=== PATIENT | female | born 1990 ===

== ENCOUNTER 2023-08-04 09:52 | Outpatient (CLI) | payer MEDICAID, SELFPAY ==
--- NOTE | 2023-08-04 12:39 | OP.DCCON ---
Reason for Visit: [id number] O24.730 Person Interviewed: Patient Medical History, Labs and Background: Aleksandar said she is currently 30 weeks and was recently diagnosed with gestational diabetes. Height: 5 ft Weight: 190 lb UBW: Aleksandar stated her UBW was around 170-175lbs Concerns and Goals: She wanted to know how to eat to manage her blood glucose levels. Sleep Hygiene: Aleksandar claimed she is a night owl who tends to get hungry when she stays up late. Physical Activity: She is active with her children, but otherwise no daily exercise. GI Symptoms: Constipation Other Feeding Issues: Aleksandar describes herself as a picky eater. Food Allergies and Sensitivities: She is allergic to strawberries. 24 Hour Recall: Breakfast Time: 8am camila Eggs or omlette + avocado Snack Time: Lunch Time: noon Meat from night before Snack Time: Dinner Time: 6pm camila eggs and mancuso in a tortilla Snack Time: Eating Out: They don't eat out a lot. Soda vs Milk vs Water: She used to have milk+cereal, not a big fan or water, cut out coffee for the most part, and an occasional diet soda. Additional Comments: Constipation is sometimes an issue, so we broached more fruits/ vegetables/whole grains which is hard as she is not a big fan of most vegetables. We also discussed fluid intake and she isn't a huge fan of water, but is willing to try. Aleksandar thought she couldn't have any carbs and so had eliminated most of them. We discussed managing carbs which she said would be hard as she is a carboholic . Given her diagnosis I suggested this could be a time to learn moderation that could carry over after the of her baby which is a better habit in the long run. Recommendations: Assessment: Aleksandar is motivated and had already seen progress in her blood glucose readings. We talked about focusing on how to manage carb servings by looking at how many to have w/each meal or snack, what is a carb serving and aiming at whole grain if possible. Because she isn't a fan of vegetables, we discussed working them in through fresh salsa or spinach/ fruit in a smoothie and having salads with protein on top. It seemed like a lot for her to process, but she is willing. Nutrition Dx: Altered nutrition related labs r/t high blood glucose reading AEB diagnosis of gestational diabetes. Intervention: We talked through handouts on label reading - focusing on how to figure out carb servings for food and then how to manage the number of carb servings per meal. MyPlate for diabetics was a visual for how to set up her plate. Since veggies and fruits are not melani for her, we talked about sneaking in vegetables through salads, chopped up small in omelettes and things like chili. She is having a lot of indigestion so frequent non-spicy meals would be the best. Lastly we looked at 5 days worth of meals as a template of how to choose the number of carbs for your meal and round it out with healthy fat and lean protein. Also discussed make your own smoothies as well as Adtkins high protein/low carb shakes. Monitoring and Evaluation: At the bottom of her goal sheet is my office phone and email for f/u questions. Coding Level of Care Code Nutrition/Individ/Init 60 min Time Spent (min) 60
== END 2023-08-04 09:53 | disposition home or self-care (01) ==
LOC: DIET 09:53
PROVIDERS: Visit Provider Family Medicine
DX: Z71.3 Dietary counseling and surveillance (principal); O24.419 Gestational diabetes mellitus in pregnancy, unspecified control; Z3A.30 30 weeks gestation of pregnancy
CPT/HCPCS: 97802

== ENCOUNTER 2023-08-12 10:26 | Outpatient (CLI) | payer MEDICAID, SELFPAY ==
[2023-08-12 10:26] VITALS: BMI 35.7
[2023-08-12 10:47] VITALS: BP 125/75; PULSE 82
[2023-08-12 10:55] VITALS: RESP 18
[2023-08-12 11:04] VITALS: BP 115/73; PULSE 86
[2023-08-12 11:13] VITALS: BP 112/70; PULSE 81
[2023-08-12 11:14] LABS: Nitrazine Paper, PH Negative
[2023-08-12 11:23] VITALS: BP 112/70; PULSE 81
== END 2023-08-12 11:23 | disposition home or self-care (01) ==
LOC: OPOB 10:30 → OBGYN 10:31
PROVIDERS: Visit Provider Family Medicine
DX: O26.899 Other specified pregnancy related conditions, unspecified trimester (principal); Z3A.00 Weeks of gestation of pregnancy not specified
CPT/HCPCS: 59025; 83986; 99211

== ENCOUNTER 2023-09-23 01:38 | Inpatient (IN) | payer MEDICAID, SELFPAY ==
[2023-09-23] VITALS (18 sets, daily range): BP systolic 96–187; BP diastolic 57–101; PULSE 72–96; RESP 16–17; TEMP 36.5–36.8; O2SAT 95–97; BMI 36.7
--- NOTE | 2023-09-23 01:38 | ANES.PREANE2 ---
Pre-Anesthetic Assessment Height/Weight: Height 1.52 m Pulse BP 85 178/99 09/23/23 01:24 09/23/23 01:24 Familial anesthetic complications: None Was Beta Mariya taken within 24 hours: Yes Was Clonidine taken within 24 hours: N/A Last Intake: 17:00 Social No alcohol and No tobacco Exam alert, oriented x 3, clear to auscultation bilaterally and regular rate & rhythm Airway Submandibular: within normal limits Cervical ROM: within normal limits Mallampati: Class II Dentition: full History/ROS No significant history except as noted and No significant complaints Pulmonary Asthma (Inhaler as needed) CV/HEM Hypertension (Gestational HTN) None reported Hepatic None reported GI Gastroesophageal Reflux Disease Metabolic Diabetes Mellitus (Gestational diabetes) Musc/skel Scoliosis Neuropsych Anxiety and Depression Anesthetic Plan ASA status: 2 Anesthesia: Anesthesia Evaluation and General Other: Labor epidural Risk of > 500 ml blood loss (7ml/kg in children): No Data Anesthesia Cardiac Studies: No Data to Display
[2023-09-23] MEDS: lactated ringers 1,000 ML 999 ML IV (01:50)
[2023-09-23 02:07] LABS: Basophils % 0.1 %; Eosinophils % 0.1 %; Hematocrit 37.9 % (36-47); Lymphocytes # 2.5 10^3/uL (0.8-4.8); Lymphocytes % 27.4 %; Mean Corpuscular HGB Conc 32.7 g/dL (30-55); Mean Corpuscular Hemoglobin 28.8 pg (27-33); Mean Corpuscular Volume 87.9 fl (85-98); Mean Platelet Volume 11.8 fL (7.4-10.4); Monocytes # 0.5 10^3/uL (0.2-0.9); Monocytes % 5.7 %; Neutrophils # 5.93 10^3/uL (1.8-7.7); Neutrophils % 66.4 %; Nucleated Red Blood Cells % 0 %; Platelet Count 124 10^3/cmm (157-399); Red Blood Count 4.31 10^6/uL (3.85-5.65); White Blood Count 8.94 10^3/uL (3.29-11.43)
[2023-09-23] MEDS: lidocaine 2% INJ 20 mL INJECTION (02:20)
[2023-09-23 02:26] LABS: Slide Review Slide Review Perform
[2023-09-23] MEDS: oxytocin 30 UNIT/500 ML BAG 600 UNIT IV (02:31)
--- NOTE | 2023-09-23 02:40 | PM.OPHPUD ---
Labor & Delivery H&P Update Date of Procedure: September 23, 2023 Date H&P Performed: 09/22/23 Changes to previous documentation: The patient arrived to the hospital 5 cm dilated with consistent contractions every 2 minutes. Admission Diagnosis: 33-year-old 3 para 2-0-0-2 at 38 weeks and 3 days estimated gestational age with diet-controlled gestational diabetes presenting in active labor Planned procedure: Spontaneous vaginal delivery Other information: The patient is a healthy 33-year-old female. Her has been remarkable for diet-controlled gestational diabetes. She has had excellent control of her blood sugars. There have been no other concerns. Her blood type is O+. Her antibody screen is negative. She is GBS negative. She is rubella immune. The remainder of her infectious disease profile is within normal limits. The patient was seen in my office yesterday. Her membranes were stripped.. She stated that since that time she been having contractions that got progressively worse prior to coming to the hospital. Her membranes were intact. Related Problem List Diagnoses (1) Diet controlled gestational diabetes mellitus: (2) 38 weeks gestation of : A&P Assessment and plan (1) Diet controlled gestational diabetes mellitus: Status: Acute (2) 38 weeks gestation of : Status: Acute
--- NOTE | 2023-09-23 02:44 | P.PCNOB_ITS ---
Delivery Note: Date of delivery: September 23, 2023 Pre-delivery diagnoses: 33-year-old 3 para 2-0-0-2 at 38 weeks estimated gestation age with diet-controlled gestational diabetes presenting in active labor Post-delivery diagnoses: Status post spontaneous vaginal delivery Procedure: Spontaneous vaginal delivery Delivering Physician: Vinny Gay Estimated blood loss (mL): 50 Pre-Delivery Course: The patient presented to the hospital in active labor. She quickly progressed to complete within an hour of arrival to hospital. An amniotomy was performed just prior to her pushing. Delivery: DELIVERY: The patient progressed to complete without difficulty. She delivered a female with a weight of 6 pounds 3 ounces with Apgars of 9, 10. The baby was delivered from the ROSIE position. The baby's mouth and nose were suctioned at the site of the perineum. The baby was then completely delivered and placed on the mother's abdomen. The cord was then clamped and cut. There was no nuchal cord. There was no meconium. The placenta and 3 vessel cord were delivered intact shortly thereafter. The perineum and vaginal vault were carefully exam ined. A posterior midline first-degree tear was noted that extended superficially onto the perineum. It was repaired with 3-0 Vicryl. Both the mother and the baby were in stable condition. Post-Delivery Status: Good A&P Assessment and plan (1) Spontaneous vaginal delivery: I anticipate routine care. Her glucose will be checked twice a day. (2) Diet controlled gestational diabetes mellitus: (3) 38 weeks gestation of : Coding Level of Care Code Acute Code for Chg Fwd Diagnoses Spontaneous vaginal delivery O80 Diet controlled gestational diabetes mellitus O24.410 38 weeks gestation of Z3A.38
[2023-09-23] MEDS: benzocaine-menthol 78 gm Canister 1 SPRAY TOPICAL (03:50)
[2023-09-23] MEDS: HYDROcodone-acetaminophen 5-325 mg Tablet PO (03:51)
[2023-09-23 08:10] LABS: Glucose Point of Care 95 mg/dL (70-110)
[2023-09-23] MEDS: PRENATAL VIT NO.130/IRON/FOLIC 1 EACH TABLET PO (08:27)
[2023-09-23] MEDS: ibuprofen 800 mg tablet PO ×3 (08:27→20:27)
[2023-09-23] MEDS: docusate sodium 100 mg Capsule PO ×2 (08:27→18:24)
[2023-09-23 15:08] LABS: Hematocrit 34.6 % (36-47); Mean Corpuscular HGB Conc 32.9 g/dL (30-55); Mean Corpuscular Hemoglobin 29.4 pg (27-33); Mean Corpuscular Volume 89.2 fl (85-98); Platelet Count 136 10^3/cmm (157-399); Red Blood Count 3.88 10^6/uL (3.85-5.65); White Blood Count 8.65 10^3/uL (3.29-11.43)
[2023-09-24 04:00] VITALS: BP 105/68; PULSE 65; RESP 16; TEMP 36.6; O2SAT 96
[2023-09-24 07:16] LABS: Glucose Point of Care 81 mg/dL (70-110)
[2023-09-24] MEDS: docusate sodium 100 mg Capsule PO (08:04)
[2023-09-24] MEDS: ibuprofen 800 mg tablet PO (08:04)
[2023-09-24] MEDS: PRENATAL VIT NO.130/IRON/FOLIC 1 EACH TABLET PO (08:04)
--- NOTE | 2023-09-24 09:24 | P.DS_ITS ---
Discharge Providers ELEVATOR ADJUSTER Date of Admission: 09/23/23 01:38 Date of Discharge: 09/24/23 Attending Provider at Admission: Vinny Gay MD Attending Provider at Discharge: Vinny Gay MD Diagnoses at Discharge Discharge Diagnosis (1) Spontaneous vaginal delivery: Status: Acute (2) Diet controlled gestational diabetes mellitus: Status: Acute (3) 38 weeks gestation of : Status: Acute (4) Gestational hypertension: Status: Acute (5) Anxiety: Status: Acute Reason for Visit Reason for Visit: contractions Hospital Course Hospital Course The patient presented to the hospital in active labor. She was found to be 5 cm dilated with consistent contractions. She quickly progressed to complete. An amniotomy was performed. She then pushed through 2 contractions and delivered a healthy female infant from a vertex position without difficulty. She did have a posterior midline first-degree tear which was repaired without difficulty. Her course was also unremarkable. Her blood sugars were within normal limits. Her blood pressures were also within normal limits. Her bleeding was within normal limits. She breast-fed well. Her pain was well-controlled. Information Peripartum Data: Infant Delivery Method: Vaginal Physical Exam Narrative: The patient is alert. She appears comfortable. Her heart has a regular rate and rhythm with no murmurs appreciated. Lungs are clear to auscultation bilaterally. Her fundus is firm and below the umbilicus. Discharge Data Studies Completed and Pending Laboratory Results WBC 8.65 10^3/uL (3.29-11.43) 09/23/23 15:00 RBC 3.88 10^6/uL (3.85-5.65) 09/23/23 15:00 Hgb 11.40 g/dL (11.27-16.99) 09/23/23 15:00 Hct 34.6 % (36-47) L 09/23/23 15:00 MCV 89.2 fl (85-98) 09/23/23 15:00 MCH 29.4 pg (27-33) 09/23/23 15:00 MCHC 32.9 g/dL (30-55) 09/23/23 15:00 RDW 14.0 % (12.1-15.1) 09/23/23 15:00 Plt Count 136 10^3/cmm (157-399) L 09/23/23 15:00 MPV 11.0 fL (7.4-10.4) H 09/23/23 15:00 Neut % (Auto) 66.4 % 09/23/23 01:45 Lymph % (Auto) 27.4 % 09/23/23 01:45 Saline % (Auto) 5.7 % 09/23/23 01:45 Eos % (Auto) 0.1 % 09/23/23 01:45 Baso % (Auto) 0.1 % 09/23/23 01:45 Neut # (Auto) 5.93 10^3/uL (1.8-7.7) 09/23/23 01:45 Lymph # (Auto) 2.5 10^3/uL (0.8-4.8) 09/23/23 01:45 Saline # (Auto) 0.5 10^3/uL (0.2-0.9) 09/23/23 01:45 Eos # (Auto) 0.0 10^3/uL (0.0-0.8) 09/23/23 01:45 Baso # (Auto) 0.0 10^3/uL (0.0-0.1) 09/23/23 01:45 Nucleated RBC % (auto) 0 % 09/23/23 01:45 Nucleated RBCs # 0.0 /100WBC 09/23/23 01:45 POC Glucose 81 mg/dL (70-110) 09/24/23 07:11 Vitals Last Vital Signs Temp 97.8 F 09/24/23 04:00 Pulse 65 09/24/23 04:00 Resp 16 09/24/23 04:00 BP 105/68 09/24/23 04:00 Pulse Ox 96 09/24/23 04:00 O2 Del Method Room Air 09/24/23 04:00 Results Labs OB ([facility]): Hct 34.6 % (36-47) L 09/23/23 Hgb 11.40 g/dL (11.27-16.99) 09/23/23 Plt Count 136 10^3/cmm (157-399) L 09/23/23 Discharge Plan Discharge Patient Disposition: Home Condition: Stable Prescriptions: New ibuprofen 800 mg Tablet 800 mg PO TID Qty: 45 0RF escitalopram oxalate 5 mg tablet 5 mg PO DAILY Qty: 30 3RF Continued Vitamin 27 mg iron- 800 mcg Tablet 1 tab PO DAILY Discharge Orders: Discharge Order (Routine); Ordered 09/24/23 Ordered By: Vinny Gay Referrals: Vinny Gay MD [Physician] - 6 Weeks Discharge Diet: Usual diet Discharge Activity: Limit activity as instructed Patient Instructions: Depression (DC), Bleeding (DC), Preeclampsia and Eclampsia After Delivery (GEN), Safe Disposal of Opioids (GEN), Hemorrhage (DC), OB Discharge Report, OB Food/Drug Interaction Guide, OB Care at Home, Opioid Safety, OB Proud Parent Packet, OB Vaginal Deliveries Activity Restrictions/Additional Instructions: Take occasional blood sugars to verify that blood sugars are now in appropriate range. Also take blood pressure at least twice a week until 6-week appointment. Please bring a record of your blood pressures Discharge Attestations ELEVATOR ADJUSTER Time Spent in Discharge Care*: less than 30 min Coding Level of Care Code Acute Code for Chg Fwd Diagnoses Spontaneous vaginal delivery O80 Diet controlled gestational diabetes mellitus O24.410 38 weeks gestation of Z3A.38 Gestational hypertension O13.9 Anxiety F41.9
[2023-09-24 10:15] VITALS: BP 119/75; PULSE 76; RESP 15; TEMP 36.6; O2SAT 97
[2023-09-24 19:04] LABS: Glucose Point of Care 127 mg/dL (70-110)
== END 2023-09-24 10:15 | disposition home or self-care (01) | DRG 807 ==
LOC: OPOB 02:40 → OBGYN 02:40
PROVIDERS: Admitting Provider Family Medicine; Visit Provider Family Medicine
DX: O24.420 Gestational diabetes mellitus in childbirth, diet controlled (principal); Z37.0 Single live birth; O70.0 First degree perineal laceration during delivery; Z3A.38 38 weeks gestation of pregnancy
CPT/HCPCS: 36415; 36416; 59025; 59409; 82962; 85025; 85027; 99211; J2590; J7120